=== PATIENT | female | born 1950 | race Caucasian/White ===

== ENCOUNTER 2019-08-10 14:00 | Outpatient (RCR) | payer MEDICARE, OTHER | END 2019-08-10 14:30 | disposition still patient (30) | LOC: PT 14:00 | DX: S82.291A Other fracture of shaft of right tibia, initial encounter for closed fracture (principal) ==

== ENCOUNTER 2020-09-24 08:25 | Emergency (ER) | payer MEDICARE, OTHER ==
[2020-09-24] MEDS ORDERED: PRAVASTATIN SOD40 MG PO (08:35)
[2020-09-24] MEDS ORDERED: SYNTHROID RP0.088 MG PO (08:35)
[2020-09-24] MEDS ORDERED: PRILOSEC 20MG20 MG PO (08:35)
[2020-09-24 08:56] LABS: BASO # 0.1 (0.02-0.10); EOS # 0.1 (0.04-0.40); EOS % 0.6 % (1.0-5.0); HEMATOCRIT 41.7 % (37.0-47.0); HEMOGLOBIN 13.8 g/dL (12.5-16.0); LYMPH# 1.5 (1.50-4.00); MEAN CELL VOLUME 94 fl (78-100); MEAN CORPUSCULAR HEMOGLOBIN 31 pg (27-31); MEAN CORPUSCULAR HGB CONC 33 g/dL (33-37); MEAN PLATELET VOLUME 8.6 fl (7.4-10.4); MONO # 0.9 (0.20-0.80); NEU # 6.4 (1.40-6.50); PLATELET COUNT 264 K/mm3 (130-400); RED BLOOD COUNT 4.44 M/mm3 (4.10-5.30); RED CELL DISTRIBUTION WIDTH 13.1 % (11.5-14.5); WHITE BLOOD COUNT 8.9 K/mm3 (4.8-10.8)
[2020-09-24 09:07] LABS: ALBUMIN 3.9 g/dL (3.4-4.8); POTASSIUM 4.4 mmol/L (3.5-5.1)
[2020-09-24 09:08] LABS: CALCIUM 8.7 mg/dL (8.3-10.5)
[2020-09-24 09:09] LABS: TOTAL PROTEIN 6.9 g/dL (6.2-8.1)
[2020-09-24 09:11] LABS: TOTAL BILIRUBIN 0.5 mg/dL (0.2-1.2)
[2020-09-24 09:20] LABS: D-DIMER 0.37 mg/L FEU (0.15-0.50)
[2020-09-24 09:58] LABS: ERYTHROCYTE SEDIMENTATION RATE 11 mm/hr (0-30)
[2020-09-24 11:49] LABS: PH-URINE 6.5 (5.0 - 8.0); URINE APPEARANCE CLEAR; URINE COLOR YELLOW
[2020-09-24 11:50] LABS: URINE BILIRUBIN NEGATIVE (NEGATIVE); URINE BLOOD TRACE (NEGATIVE); URINE GLUCOSE NEGATIVE (NEGATIVE); URINE KETONE SMALL (NEGATIVE); URINE LEUKOCYTE ESTERASE NEGATIVE (NEGATIVE); URINE MUCUS PRESENT (NOT PRESENT); URINE NITRATE NEGATIVE (NEGATIVE); URINE PROTEIN(semi-quant) TRACE mg/dL (NEGATIVE); URINE UROBILINOGEN NORMAL (NORMAL); URINE WBC 0-1 /hpf (0-3)
[2020-09-24 13:10] VITALS: BP 115/74
== END 2020-09-24 12:33 | disposition home or self-care (01) ==
LOC: ED 08:25
PROVIDERS: Physician Assistant
DX: R55 Syncope and collapse (principal); S09.90XA Unspecified injury of head, initial encounter; E86.0 Dehydration; K21.9 Gastro-esophageal reflux disease without esophagitis; E03.9 Hypothyroidism, unspecified; E78.5 Hyperlipidemia, unspecified; Z79.890 Hormone replacement therapy; X58.XXXA Exposure to other specified factors, initial encounter
CPT/HCPCS: J7030